=== PATIENT | male | born 1945 | race Caucasian/White ===

== ENCOUNTER → 2018-09-13 | Day surgery (SDC) | payer MEDICARE, BC ==
[~2018-09-13] MED LIST: Lactated Ringers 1,000 ML IV SCH; Propofol 200 MG/20 ML SDV IV ONE
[2018-09-13 09:25] VITALS: BP 141/66
--- NOTE | 2018-09-13 14:37 | OR ---
DATE OF OPERATION: 09/13/2018 PREOPERATIVE DIAGNOSIS: SCREENING COLONOSCOPY. POSTOPERATIVE DIAGNOSIS: SCREENING COLONOSCOPY. SURGEON: Thee Simeon MD PROCEDURE: FULL-LENGTH COLONOSCOPY. ANESTHESIA: MAC via TREAD BUILDER. COMPLICATIONS: None. SPECIMEN: None. FINDINGS: Normal full-length colonoscopy. RECOMMENDATIONS: Followup colonoscopy on an as-needed basis. INDICATIONS: The patient was in for a physical. He is due for a screening colonoscopy. DESCRIPTION OF PROCEDURE: The patient was prepped and draped, placed in the left lateral decubitus position. A lubricated Olympus colonoscope was inserted and easily advanced to the cecum. Direct visualization of the ileocecal valve and appendiceal orifice was accomplished. The bowel prep was adequate. Throughout the length of the colon, I could find no signs of any polyps, mass, ulceration, or bleeding sites. No vascular abnormalities or signs of colitis. There were no diverticula. The rectal vault was benign. Retroflexion of the scope in the rectum showed no anal lesions. Air was suctioned, scope removed without complication. ROSEMARIE/ADDISON /[id number]
== END | disposition home or self-care (01) ==
LOC: CC.SDS 07:20
PROVIDERS: ATTEND Family Medicine
DX: Z12.11 Encounter for screening for malignant neoplasm of colon (principal); I10 Essential (primary) hypertension; E11.9 Type 2 diabetes mellitus without complications; E78.5 Hyperlipidemia, unspecified
CPT/HCPCS: 00812; 45378; G0121; J2704; J7120

== ENCOUNTER 2018-11-14 14:30 | Observation (INO) | payer MEDICARE, BC ==
[2018-11-14 14:59] LABS: CHLORIDE,CL 106 mEq/L (98-106); SODIUM,NA 141 mEq/L (136-145)
[2018-11-14] MEDS ORDERED: Acetaminophen 325 MG Tab PO PRN (16:21)
[2018-11-14] MEDS ORDERED: Triamcinolone Acetonide 0.1% Crm 15 GM Tube TOP PRN (16:24)
[2018-11-14] MEDS ORDERED: Levofloxacin/Dextrose 5%-Water 500 MG in Premix Bag 1 BAG IV SCH (16:30)
[2018-11-14] MEDS ORDERED: Enoxaparin 40 MG/0.4 ML Syringe SUBCUT SCH (16:45)
[2018-11-14] MEDS: Sodium Chloride 0.9% 1,000 ML IV SCH (17:02)
[2018-11-14] MEDS ORDERED: Insulin Lispro 100 Units/ML 3 ML Vial SUBCUT SCH (17:30)
[2018-11-14] MEDS ORDERED: Simvastatin 40 MG Tab PO SCH (20:00)
[2018-11-14] MEDS ORDERED: Barium Sulfate Oral Susp 450 ML Bottle PO ONE (20:40)
[2018-11-14] MEDS: Iopamidol 755 Mg/ML 200 ML Bottle IV ONE ×2 (21:07→21:10)
[2018-11-15] MEDS: Sodium Chloride 0.9% 1,000 ML IV SCH (05:07)
[2018-11-15 07:31] LABS: CHLORIDE,CL 108 mEq/L (98-106); SODIUM,NA 143 mEq/L (136-145)
[2018-11-15] MEDS ORDERED: Lisinopril 20 MG Tab PO SCH (08:00)
[2018-11-15] MEDS ORDERED: Aspirin 325 MG Tab PO SCH (08:00)
[2018-11-15] MEDS ORDERED: Insulin Lispro 100 Units/ML 3 ML Vial SUBCUT SCH ×2 (08:00→11:30)
[2018-11-15] MEDS ORDERED: Insulin Glargine,Human Rec. Analog 100 Units/ML 3 ML Pen SUBCUT SCH (08:00)
[2018-11-15 09:45] VITALS: BP 129/60
== END 2018-11-15 08:13 | disposition home or self-care (01) ==
LOC: CC.FCMC 14:30 → CC.MS 14:30 → UNDOADMOB 15:17 → CC.MS 15:17
PROVIDERS: ADMIT Family Medicine; ATTEND Family Medicine
DX: J18.9 Pneumonia, unspecified organism (principal); R63.4 Abnormal weight loss; E86.0 Dehydration; I10 Essential (primary) hypertension; E78.5 Hyperlipidemia, unspecified; E11.9 Type 2 diabetes mellitus without complications; Z79.82 Long term (current) use of aspirin; Z79.4 Long term (current) use of insulin; Z79.899 Other long term (current) drug therapy
CPT/HCPCS: 36415; 71046; 71260; 74177; 80048; 80053; 81001; 82962; 85025; 86140; 87070; 87077; 87186; 87205; 96361; 96365; 96372; A4217; A9270-GY; G0378; J1650; J1956; J7030; Q9967